=== PATIENT | male | born 1975 | race Two or more races ===

== ENCOUNTER 2021-06-21 14:39 | Emergency (ER) | payer SELFPAY ==
[~2021-06-21] VITALS: Ht 175.3 cm; Wt 91.6 kg
[2021-06-21] MEDS ORDERED: DexAMETHasone SOD PHOS 10MG/1ML VIAL INJ IM ONE (16:30)
[2021-06-21] MEDS ORDERED: cefTRIAXone SOD 1,000 MG VL IM ONE (16:30)
[2021-06-21] MEDS ORDERED: METH4PAK PO (16:40)
[2021-06-21] MEDS ORDERED: AZIT250T8 PO (16:40)
[2021-06-21] MEDS ORDERED: PROM1SOL4 PO (16:40)
[2021-06-21 16:48] VITALS: BP 110/62
== END 2021-06-21 16:00 | disposition home or self-care (01) ==
LOC: ER 14:39
DX: U07.1 COVID-19 (principal); J03.90 Acute tonsillitis, unspecified; J20.9 Acute bronchitis, unspecified
CPT/HCPCS: 71045; 93005; 96372; 99284; J0696; J1100

== ENCOUNTER 2022-08-03 22:57 | Emergency (ER) | payer OTHER ==
[~2022-08-03] VITALS: Ht 175.3 cm; Wt 220.0 kg
[~2022-08-03 22:57] MED LIST: AZIT250T8 PO; METH4PAK PO; PROM1SOL4 PO
[2022-08-03 23:10] VITALS: BP 143/88
[2022-08-03 23:40] LABS: Basophils # (auto) 0.1 10 ^3/uL (0-0.2); Basophils % (auto) 2.8 % (0.0-2.0); Eosinophils # (auto) 0.2 10 ^3/uL (0-0.8); Hematocrit 42.2 % (41.0-53.0); Hemoglobin 14.5 g/dL (13.5-17.5); Lymphocytes # (auto) 2.1 10 ^3/uL (0.4-5.4); Lymphocytes % (auto) 47.6 % (10.0-50.0); Mean Corpuscular Hemoglobin 30.1 pg (28.0-32.0); Mean Corpuscular Hgb Conc. 34.3 g/dL (32.0-36.0); Mean Corpuscular Volume 87.9 fL (80.0-100.0); Monocytes # (auto) 0.5 10 ^3/uL (0-1.3); Monocytes % (auto) 11.3 % (0.0-12.0); Neutrophils # (auto) 1.4 10 ^3/uL (1.6-8.6); Neutrophils % (auto) 33.3 % (37.0-80.0); Nucleated Red Blood Cells % 0.1 %; Red Blood Cells 4.81 10^6/uL (4.5-5.90); White Blood Cell 4.3 10^3/uL (4.4-10.8)
[2022-08-03 23:57] LABS: Albumin 3.8 g/dL (3.4-5.0); BUN/Creatinine Ratio 17.8; Calcium 8.9 mg/dL (8.5-10.1); Potassium 3.8 mmol/L (3.5-5.1)
[2022-08-03 23:59] LABS: Bilirubin, Total 0.3 mg/dL (0.2-1.0); Total Protein 7.3 g/dL (6.4-8.2)
[2022-08-04] MEDS ORDERED: AMOX500T86 PO (03:56)
== END 2022-08-04 05:30 | disposition home or self-care (01) ==
LOC: ER 22:57
DX: R42 Dizziness and giddiness (principal); H66.91 Otitis media, unspecified, right ear; Z79.2 Long term (current) use of antibiotics; Z79.899 Other long term (current) drug therapy
CPT/HCPCS: 36415; 70450; 80053; 84484; 85025; 93005